=== PATIENT | male | born 1990 | race Hispanic/Latino ===

== ENCOUNTER 2017-07-08 17:39 | Emergency (ER) | payer OTHER ==
[~2017-07-08] VITALS: Ht 175.3 cm; Wt 100.0 kg
[2017-07-08 17:40] VITALS: BP 149/86
[2017-07-08] MEDS ORDERED: ALEV220T26 PO (18:04)
[2017-07-08] MEDS ORDERED: IBUP-1114 PO (18:04)
[2017-07-08] MEDS ORDERED: NORCOTAB PO (18:38)
== END 2017-07-08 19:04 | disposition home or self-care (01) ==
LOC: M ED 17:39
DX: K08.89 Other specified disorders of teeth and supporting structures (principal); F33.9 Major depressive disorder, recurrent, unspecified